=== PATIENT | female | born 1995 | race Caucasian/White ===

== ENCOUNTER 2020-02-10 04:33 | Emergency (ER) | payer OTHER, SELFPAY ==
--- NOTE | ~2020-02-10 | CT_ITS ---
EXAMINATION: CT abdomen pelvis w con DATE: 02/10/2020 07:00 INDICATION: Epigastric abdominal pain. Nausea and vomiting. TECHNIQUE: Computed tomography (CT) of the abdomen and pelvis was performed with 100 mL Omnipaque 350 intravenous contrast. Automated exposure control and iterative reconstruction technique were employe d. The dose-length product was 1243.88 mGy-cm. COMPARISON: CT abdomen and pelvis 08/10/2018 FINDINGS: The visualized portions of the lung bases are clear without pneumonia or pleural effusion. The heart size is normal. No pericardial effusion. There is diffuse hepatic steatosis. The gallbladde r, spleen, pancreas, adrenal glands, and kidneys are normal. There are no dilated loops of bowel. The appendix is normal. There are no pathologically enlarged lymph nodes. There is no free intraperitone al fluid. There is a benign bone island in left femoral head. IMPRESSION: 1. Diffuse hepatic steatosis. Reviewed, dictated and finalized at location A.
[2020-02-10 04:36] VITALS: BP 159/110; PULSE 86; RESP 16; TEMP 36.3; O2SAT 100
--- NOTE | 2020-02-10 04:55 | ED.NAVMDI ---
HPI - Nausea/Vomiting/Diarrhea General Chief complaint: Nausea/Vomiting/Diarrhea <Dae Gómez MD - Last Filed: 02/13/20 18:50> Stated complaint: n/v, low blood sugar <Dae Gómez MD - Last Filed: 02/13/20 18:50> Time Seen by Provider: 02/10/20 04:44 <Dae Gómez MD - Last Filed: 02/13/20 18:50> History of Present Illness HPI Narrative: Nausea and vomiting for the past 3 weeks. Becoming more frequent. Associated with upper abdominal pain. Additionally has paresthesias in the extremities. She has had similar smyptoms multiple times in the past. <Dae Gómez MD - Last Filed: 02/13/20 18:50> Related Data Allergies/Adverse reactions: Allergies Allergy/AdvReac Type Severity Reaction Status Date / Time No Known Allergies Allergy Verified 02/10/20 04:39 <Dae Gómez MD - Last Filed: 02/13/20 18:50> Review of Systems Review of Systems: All systems reviewed & are unremarkable except as noted in HPI and below <Dae Gómez MD - Last Filed: 02/13/20 18:50> Cardiovascular: Cardiovascular: Reports chest pain <Dae Gómez MD - Last Filed: 02/13/20 18:50> Respiratory: Respiratory: Reports dyspnea <Dae Gómez MD - Last Filed: 02/13/20 18:50> Gastrointestinal: Gastrointestinal: Reports abdominal pain, Reports nausea and Reports vomiting <Dae Gómez MD - Last Filed: 02/13/20 18:50> Genitourinary: Genitourinary: Denies dysuria <Dae Gómez MD - Last Filed: 02/13/20 18:50> [facility] Past Medical History Medical History: Medical History (Updated 02/11/20 @ 00:00 by Luli Jaimes) Abdominal pain <Dae Gómez MD - Last Filed: 02/13/20 18:50> Social History Social History: Social History (Updated 02/10/20 @ 05:50 by Dae Gómez MD) Smoking status: Never smoker Gender identity (if verbalized by the patient): Female <Dae Gómez MD - Last Filed: 02/13/20 18:50> Exam Const: General: no acute distress and alert <Dae Gómez MD - Last Filed: 02/13/20 18:50> Orientation/consciousness: patient oriented x3 <Dae Gómez MD - Last Filed: 02/13/20 18:50> HENMT: Head: normal to inspection <Dae Gómez MD - Last Filed: 02/13/20 18:50> Resp: Effort & Inspection: normal respiratory effort <Dae Gómez MD - Last Filed: 02/13/20 18:50> Auscultation: clear to auscultation bilaterally, no rales, no rhonchi and no wheezes <Dae Gómez MD - Last Filed: 02/13/20 18:50> Cardio: Jugular venous distension: no JVD <Dae Gómez MD - Last Filed: 02/13/20 18:50> Rate: regular rate <Dae Gómez MD - Last Filed: 02/13/20 18:50> Rhythm: regular rhythm <Dae Gómez MD - Last Filed: 02/13/20 18:50> Heart sounds: no murmurs <Dae Gómez MD - Last Filed: 02/13/20 18:50> GI: Inspection: non-distended <Dae Gómez MD - Last Filed: 02/13/20 18:50> GI Palp: Yes Soft to palpation and Yes Tenderness to palpation present (GI) <Dae Gómez MD - Last Filed: 02/13/20 18:50> Skin: General skin exam: normal color <Dae Gómez MD - Last Filed: 02/13/20 18:50> Neuro: General: patient oriented x3, moves all extremities and CN's II-XI intact bilaterally <Dae Gómez MD - Last Filed: 02/13/20 18:50> Speech: normal speech <Dae Gómez MD - Last Filed: 02/13/20 18:50> Extrem: General: no edema <Dae Gómez MD - Last Filed: 02/13/20 18:50> Psych: Appearance: well kempt <Dae Gómez MD - Last Filed: 02/13/20 18:50> Affect: normal affect <Dae Gómez MD - Last Filed: 02/13/20 18:50> Course Course Emergency Course: Care turned over to myself at shift change. Seen and evaluated myself. Initial H&P resting comfortably in bed in no acute distress states nausea is improved Patient with p.o. challenge in ED. Able to drink water with no emesis Patient states
[2020-02-10 05:02] LABS: Basophils Percent Auto 0.3 % (0.2-1.2); Eosinophils Percent Auto 0.1 % (0-4.4); Hemoglobin 16.1 g/dL (12.0-15.0); Immature Granulocyte Absolute 0.05 K/mm3 (0.00-0.031); Immature Granulocyte Percent A 0.4 % (0-0.5); Lymphocytes Absolute Auto 1.61 K/mm3 (0.9-3.2); Lymphocytes Percent Auto 11.5 % (18.3-44.2); Mean Corpuscular HGB Conc 34.3 g/dl (32-36); Mean Corpuscular Hemoglobin 28.8 pg (26-34); Mean Corpuscular Volume 84.1 fl (80-100); Mean Platelet Volume 9.6 fl (7.4-10.4); Monocytes Absolute Auto 0.5 K/mm3 (0.1-0.6); Monocytes Percent Auto 3.4 % (2.6-8.5); Neutrophils Absolute Auto 11.8 K/mm3 (1.3-6.7); Neutrophils Percent Auto 84.3 % (45.5-73.1); Platelet Count Result 432 k/mm3 (150-375); Red Blood Count 5.59 M/mm3 (4.2-5.4); Red Cell Distribution Width 12.7 % (11.5-14.5)
[2020-02-10] MEDS: LORAZEPAM INJ 2 MG/ML VIAL 1 MG IV PUSH (05:08)
[2020-02-10] MEDS: METOCLOPRAMIDE HCL INJ 10 MG/2 ML VIAL IV PUSH (05:09)
[2020-02-10] MEDS: HALOPERIDOL LACTATE 5 MG/ML VIAL IV PUSH (05:09)
[2020-02-10] MEDS: SODIUM CHLORIDE 0.9% IV 1,000 ML 999 ML IV CONT (05:10)
[2020-02-10 05:14] LABS: Alanine Aminotransferase 39 U/L (4-35); Albumin Level 5.3 g/dL (3.5-5.1); Alkaline Phosphatase 101 U/L (38-126); Aspartate Amino Transferase 28 U/L (14-36); Bilirubin,Total 0.9 mg/dL (0.2-1.3); Blood Urea Nitrogen 9 mg/dL (7-17); Calcium 10.6 mg/dL (8.4-10.2); Carbon Dioxide 23 mmol/L (22-30); Chloride 102 mmol/L (98-107); Estimated CRCL calculation 114 ml/min; Estimated Glomerular Filt Rate > 60; Glucose 116 mg/dL (65-105); Lipase 31 U/L (23-300); Sodium 139 mmol/L (137-145)
[2020-02-10 05:41] VITALS: BP 130/66
[2020-02-10 05:42] VITALS: BP 139/66; PULSE 83
[2020-02-10 05:43] VITALS: BP 135/76; PULSE 103
[2020-02-10 05:56] LABS: Add Urine Microscopic? YES; Appearance Urine Cloudy (Clear); Bacteria Urine 1+ /hpf; Bilirubin Urine Negative (Negative); Blood Urine Negative (Negative); Color Urine Yellow (Yellow); Glucose Urine UA Negative (Negative); Ketones Urine 2+ mg/dL (Negative); Leukocyte Esterase Ur Negative LEU/UL (Negative); Mucus Urine Rare /lpf; Nitrate Urine Negative (Negative); Protein Urine 1+ mg/dL (Negative); RBC Urine 0-2 /hpf (0-2); Specific Grav Ur 1.021 (1.001-1.035); Squamous Epithelial Cell Urine Many /hpf (Few); Urobilinogen Urine Negative mg/dL (<2.0); WBC Urine 0-3 /hpf
[2020-02-10 07:56] VITALS: BP 131/75; PULSE 94; RESP 14; O2SAT 100
[2020-02-10 08:07] VITALS: BP 130/76; PULSE 82; RESP 12; O2SAT 99
== END 2020-02-10 08:09 | disposition home or self-care (01) ==
PROVIDERS: Emergency Medicine; Emergency Provider Emergency Medicine
DX: R11.2 Nausea with vomiting, unspecified (principal)
CPT/HCPCS: 36415; 74177; 80053; 81001; 81025; 83690; 85025; 96361; 96374; 96375; 99284; J1630; J2060; J2765; J7030; Q9967

== ENCOUNTER 2020-07-18 12:35 | Emergency (ER) | payer OTHER, SELFPAY ==
--- NOTE | ~2020-07-18 | XR_ITS ---
EXAMINATION: XR chest 1V portable INDICATION: Shortness of breath and cough TECHNIQUE: Portable AP chest at 1257 hours COMPARISON: None available FINDINGS: There are minimal airspace opacities of the lung bases. No pleural effusion or pneumothorax is identified. The cardiomediastinal silhouette is normal. IMPRESSION: 1. Minimal airspace opacities of the lung bases, consistent with atelectasis versus pneumonia. Reviewed, dictated and finalized at location A. [employer] IMPRESSION: 1. Minimal airspace opacities of the lung bases, consistent with atelectasis ve rsus pneumonia.
[2020-07-18 12:40] VITALS: BP 159/84; PULSE 125; RESP 24; TEMP 37.3; O2SAT 97
[2020-07-18 12:44] VITALS: PULSE 124
--- NOTE | 2020-07-18 12:45 | ECG_ITS ---
Measurements Intervals [place] Rate: 126 P: 70 CO: 141 QRS: 88 QRSD: 73 T: 29 QT: 302 QTc: 437 Interpretive Statements SINUS TACHYCARDIA BORDERLINE ST-T WAVE ABNORMALITY- INF/LAT BASELINE ARTIFACT- II, III, AVR, AVL, AVF, V1, V3-V6 ABNORMAL ECG Electronically Signed On 07-18-2020 15:10:23 [employer] by David Junior D.O.
[2020-07-18 13:07] LABS: Basophils Absolute Auto 0.1 K/mm3 (0.0-0.1); Basophils Percent Auto 0.9 % (0.2-1.2); Eosinophils Absolute Auto 1.1 K/mm3 (0-0.3); Eosinophils Percent Auto 8.3 % (0-4.4); Hematocrit 43.8 % (37.0-47.0); Hemoglobin 14.9 g/dL (12.0-15.0); Immature Granulocyte Absolute 0.04 K/mm3 (0.00-0.031); Immature Granulocyte Percent A 0.3 % (0-0.5); Lymphocytes Absolute Auto 3.19 K/mm3 (0.9-3.2); Lymphocytes Percent Auto 23.3 % (18.3-44.2); Mean Corpuscular Volume 85.2 fl (80-100); Mean Platelet Volume 9.4 fl (7.4-10.4); Monocytes Absolute Auto 1.1 K/mm3 (0.1-0.6); Monocytes Percent Auto 7.9 % (2.6-8.5); Neutrophils Absolute Auto 8.1 K/mm3 (1.3-6.7); Neutrophils Percent Auto 59.3 % (45.5-73.1); Platelet Count Result 409 k/mm3 (150-375); Red Blood Count 5.14 M/mm3 (4.2-5.4); White Blood Count 13.7 K/mm3 (4.5-10.0)
[2020-07-18 13:19] LABS: Anion Gap 15 mmol/L (8-16); Blood Urea Nitrogen 10 mg/dL (7-17); Calcium 10.2 mg/dL (8.4-10.2); Carbon Dioxide 26 mmol/L (22-30); Chloride 100 mmol/L (98-107); Estimated CRCL calculation 104 ml/min; Estimated Glomerular Filt Rate > 60; Glucose 101 mg/dL (65-105); Potassium 4.3 mmol/L (3.4-5.0); Sodium 141 mmol/L (137-145)
[2020-07-18] MEDS: LACTATED RINGERS 1,000 ML 999 ML IV CONT (13:47)
[2020-07-18 13:48] VITALS: BP 133/100; PULSE 118; RESP 20; O2SAT 99
[2020-07-18 13:48] LABS: Alveolar/Arterial O2 Gradient 31.7 mmHg; Base Excess ABG -1.6 mEq/l (+/-2.0); Carboxyhemoglobin 0.6 % THb (0-2.0); Fractional Inspired Oxygen 21 %; HCO3 ABG 21.3 mEq/l (22.0-26.0); Methemoglobin ABG 0.3 %THb (0-1.5); Oxygen Content ABG 19.4 %vol (16.0-22.0); Oxygen Saturation ABG 96.5 % (95.0-100.0); Oxyhemoglobin 94.8 % THb (90.0-100.0); PCO2 ABG 31.4 mmHg (35.0-45.0); PO2 ABG 80.4 mmHg (80.0-100.0); PO2 FiO2 Ratio Arterial Blood 3.83 %; Reduced Hemoglobin 4.3 %THb (0-5.0); Total Hemoglobin 14.5 g/dL (12.0-18.0)
[2020-07-18 13:49] LABS: Modified Allen's Test Pass; Site Drawn RIGHT RADIAL
[2020-07-18 13:50] LABS: Device ROOM AIR
[2020-07-18] MEDS: ALBUTEROL SULFATE (*SP) AEROSOL 1 PUFF 8 PUFF INHALATION (13:50)
[2020-07-18 13:56] LABS: Prothrombin Time 12.8 Seconds (11.1-14.7)
--- NOTE | 2020-07-18 13:57 | ED.SOB ---
HPI - SOB/Dyspnea General Chief Complaint: Shortness of Breath/Dyspnea Stated Complaint: SOB Time Seen by Provider: 07/18/20 12:51 Source: patient Mode of arrival: ambulatory Limitations: no limitations History of Present Illness HPI Narrative: This patient is a 25 year old female with history of asthma who presents for evaluation of cough and shortness of breath. She reports having a cough for 4-5 days. THis cough was nonproductive and she states it is now clear phlegm. She also reports she is having sob that is worsening over the past 2 days. She is waking up at night feeling like she can not breath. This morning she also reports body aches and subjective fever. She has been using her albuterol inhaler without relief of her wheezing. She denies sick contacts or COVID exposures. Related Data Allergies Allergy/AdvReac Type Severity Reaction Status Date / Time No Known Allergies Allergy Verified 02/10/20 04:39 Review of Systems Review of Systems: All systems reviewed & are unremarkable except as noted in HPI and below Constitutional: Constitutional: Reports chills and Reports fever(s) ENT: Reports nasal congestion and Reports sore throat (due to severe cough) Cardiovascular: Cardiovascular: Denies chest pain Respiratory: Respiratory: Reports cough, Reports dyspnea and Reports wheezing Gastrointestinal: Gastrointestinal: Reports abdominal pain, Reports diarrhea and Reports nausea Musculoskeletal: Musculoskeletal: Reports back pain Neurologic: Reports headache(s) [facility] Past Medical History Medical History (Updated 07/18/20 @ 15:41 by Bettie Fields MD) Abdominal pain Asthma Social History Social History (Updated 07/18/20 @ 14:07 by Bettie Fields MD) Smoking status: Never smoker Alcohol intake: never Substance use type: marijuana Gender identity (if verbalized by the patient): Female Exam Const: General: alert Orientation/consciousness: patient oriented x3 HENMT: Ears: TM's normal bilaterally Eyes: Pupils: Equal, round and reactive pupils present EOM: EOMs intact bilaterally Chest: Chest palpation & inspection: normal inspection of the chest Resp: Effort & Inspection: normal respiratory effort Auscultation: wheezes expiratory wheezes and throughout Other: able to speak in complete sentences Cardio: Rate: tachycardic Rhythm: regular rhythm Heart sounds: no murmurs GI: GI Palp: Yes Soft to palpation, No Tenderness to palpation present (GI), No Guarding due to palpation present (GI) and No Rigid due to palpation Skin: General skin exam: normal color Rashes: no rashes Neuro: General: patient oriented x3 and moves all extremities Extrem: General: normal to inspection and no pedal edema Course Reevaluation(s) Reevaluation #1: PAtient reports she feels much better. I Discussed she will be treated presumptively as having COVID. Date: 07/18/20 Time: 15:39 Vital Signs Vital signs: Vital Signs Temperature 99.2 F 07/18/20 12:40 Pulse Rate 125 H 07/18/20 12:40 Respiratory Rate 24 H 07/18/20 12:40 Blood Pressure 159/84 H 07/18/20 12:40 Pulse Oximetry 97 07/18/20 12:40 Temperature 99.2 F 07/18/20 12:40 Pulse Rate 98 07/18/20 15:26 Respiratory Rate 20 07/18/20 15:26 Blood Pressure 130/71 07/18/20 15:26 Pulse Oximetry 99 07/18/20 15:26 MDM - SOB/Dyspnea Lab Data Attestation: I reviewed the patient's lab results. Result diagrams: 07/18/20 12:53 07/18/20 12:53 Labs: Lab Results 07/18/20 07/18/20 07/18/20 Range/Units 12:51 12:51 12:53 WBC 13.7 H (4.5-10.0) K/mm3 RBC 5.14 (4.2-5.4) M/mm3 Hgb 14.9 (12.0-15.0) g/dL Hct 43.8 (37.0-47.0) % MCV 85.2 (80-100) fl MCH 29.0 (26-34) pg MCHC 34.0 (32-36) g/dl RDW 13.0 (11.5-14.5) % Plt Count 409 H (150-375) k/mm3 MPV 9.4 (7.4-10.4) fl Immature Gran % (Auto) 0.3 (0-0.5) % Neut % (Auto) 59.3 (4
[2020-07-18 13:59] LABS: D Dimer 0.46 ug/mL (<0.48)
[2020-07-18 14:00] LABS: Alanine Aminotransferase 48 U/L (4-35); Albumin Level 4.9 g/dL (3.5-5.1); Alkaline Phosphatase 98 U/L (38-126); Aspartate Amino Transferase 29 U/L (14-36); Bilirubin,Total 0.6 mg/dL (0.2-1.3); CRP 3.6 mg/dL (<1.0); Lipase 33 U/L (23-300); Magnesium 2.1 mg/dL (1.6-2.3)
[2020-07-18 14:09] LABS: Troponin I < 0.012 ng/mL (0.000-0.034)
[2020-07-18 14:17] LABS: Lactic Acid Reflex 1.2 mmol/L (0.7-2.1)
[2020-07-18 15:26] VITALS: BP 130/71; PULSE 98; RESP 20; O2SAT 99
[2020-07-19 19:58] LABS: SARS-CoV-2 RNA PCR Negative
== END 2020-07-18 15:40 | disposition home or self-care (01) ==
PROVIDERS: Emergency Medicine; Emergency Provider General Practice
DX: J18.9 Pneumonia, unspecified organism (principal); Z20.828 Contact with and (suspected) exposure to other viral communicable diseases; J45.909 Unspecified asthma, uncomplicated; R00.0 Tachycardia, unspecified; R94.31 Abnormal electrocardiogram [ECG] [EKG]
CPT/HCPCS: 36415; 36600; 71045; 80048; 80076; 82375; 82805; 83050; 83605; 83690; 83735; 84484; 85025; 85380; 85610; 85730; 86140; 87040; 87077; 87186; 87635; 87804; 93005; 96360; 96361; 99284; A9270; C9803; J7120; U0003